=== PATIENT | male | born 1995 | race Caucasian/White ===

== ENCOUNTER 2024-12-24 11:30 | Emergency (ER) | payer OTHER ==
[2024-12-24 11:38] VITALS: BP 134/77; PULSE 99; RESP 18; TEMP 98; BMI 34.2
[2024-12-24] MEDS ORDERED: ACETAMINOPHEN INJECTION 100 ML ONE (12:27)
[2024-12-24] MEDS ORDERED: FAMOTIDINE 20 MG/50 ML IVPB 20 MG/50 ML MG IVPB ONE (12:27)
[2024-12-24] MEDS ORDERED: MAG HYDROX/AL HYDROX/SIMETH 30 ML UNIT-DOSE CUP ONE (12:27)
[2024-12-24] MEDS: ACETAMINOPHEN 1000 MG/100 ML BAG IVPB ONE (12:43)
[2024-12-24] MEDS: MAG HYDROX/AL HYDROX/SIMETH -MYLANTA- ORAL SUSPENSION PO ONE (12:43)
[2024-12-24] MEDS: SODIUM CHLORIDE 0.9% 500 ML INFUS.BAG IV ONE (12:43)
[2024-12-24] MEDS: FAMOTIDINE 20 MG/50 ML IVPB 20 MG/50 ML MG IVPB ONE (12:43)
[2024-12-24 13:05] LABS: BASO % 1.1 % (0-2.0); EOS % 2.4 % (0-4.5); HEMATOCRIT 47.4 % (35.4-49); HEMOGLOBIN 16.4 GM/dL (11.7-16.9); MCH 30.8 pg (25.7-33.7); MCHC 34.7 g/dl (32.0-35.9); MEAN CELL VOLUME 88.8 fl (80-96); MEAN PLT VOLUME 9.9 fl (7.5-11.1); NEUT % 62.5 % (42.8-82.8); PLATELET COUNT 239 10^3/uL (134-434); RBC 5.33 M/mm3 (4.00-5.60); RDW 13.3 % (11.9-15.9); WHITE BLOOD COUNT 8.2 K/mm3 (4.0-10.0)
[2024-12-24 13:30] LABS: ALBUMIN 4.1 g/dl (3.4-5.0); BLOOD UREA NITROGEN 15.8 mg/dL (7-18); CALCIUM 8.7 mg/dL (8.5-10.1)
[2024-12-24 13:34] LABS: CREATININE 0.8 mg/dL (0.55-1.3)
[2024-12-24 13:35] LABS: BILIRUBIN,TOTAL 0.5 mg/dL (0.2-1); TOT PROT 7.5 g/dl (6.4-8.2)
[2024-12-24] MEDS ORDERED: ONDANSETRON 4 MG/2 ML VIAL ONE (14:19)
[2024-12-24] MEDS: ONDANSETRON 4 MG/2 ML VIAL IVPUSH ONE (14:28)
[2024-12-24 14:57] LABS: HIV INTERPRETATION NEGATIVE (NEGATIVE)
[2024-12-24 16:05] LABS: PH,URINE 6.5 (5.0-8.0); URINE APPEARANCE CLEAR; URINE BILIRUBIN NEGATIVE (NEGATIVE); URINE COLOR YELLOW; URINE GLUCOSE (UA) NEGATIVE (NEGATIVE); URINE KETONE NEGATIVE (NEGATIVE); URINE LEUK ESTERASE NEGATIVE (NEGATIVE); URINE NITRITE NEGATIVE (NEGATIVE); URINE PROTEIN NEGATIVE (NEGATIVE)
== END 2024-12-24 16:48 | disposition home or self-care (01) ==
LOC: JER 11:30
PROC: 3E033GC Introduction of Other Therapeutic Substance into Peripheral Vein, Percutaneous Approach (ICD-10-PCS; principal; 2024-12-24)
PROC: 3E033NZ Introduction of Analgesics, Hypnotics, Sedatives into Peripheral Vein, Percutaneous Approach (ICD-10-PCS; 2024-12-24)
PROC: 3E033GC Introduction of Other Therapeutic Substance into Peripheral Vein, Percutaneous Approach (ICD-10-PCS; 2024-12-24)
DX: R10.13 Epigastric pain (principal); R50.9 Fever, unspecified; R11.0 Nausea
CPT/HCPCS: 36415; 76705-TC; 80053; 81003; 83690; 85025; 86803; 87389; 99285-25; J0131